=== PATIENT | female | born 1930 | race Caucasian/White ===

== ENCOUNTER 2016-08-22 07:24 | Emergency (ER) | payer MEDICARE | END 2016-08-22 10:46 | disposition critical access hospital (66) | LOC: ER 07:24 | DX: I13.0 Hypertensive heart and chronic kidney disease with heart failure and stage 1 through stage 4 chronic kidney disease, or unspecified chronic kidney disease (principal); N18.9 Chronic kidney disease, unspecified; I50.9 Heart failure, unspecified; F41.9 Anxiety disorder, unspecified; I48.91 Unspecified atrial fibrillation; Z79.899 Other long term (current) drug therapy; Z98.51 Tubal ligation status | CPT/HCPCS: 36415 ==

== ENCOUNTER 2016-08-22 07:24 | Inpatient (IN) | payer MEDICARE ==
[~2016-08-22] VITALS: Ht 158.8 cm; Wt 68.2 kg
== END 2016-08-25 10:10 | disposition swing bed (61) | DRG 291 ==
LOC: ER 07:24 → MED 10:47
PROVIDERS: ADMIT Internal Medicine
DX: I13.0 Hypertensive heart and chronic kidney disease with heart failure and stage 1 through stage 4 chronic kidney disease, or unspecified chronic kidney disease (principal); I50.33 Acute on chronic diastolic (congestive) heart failure; N17.9 Acute kidney failure, unspecified; N18.3 Chronic kidney disease, stage 3 (moderate); I48.0 Paroxysmal atrial fibrillation; K21.9 Gastro-esophageal reflux disease without esophagitis; J30.9 Allergic rhinitis, unspecified; E78.5 Hyperlipidemia, unspecified; Z79.01 Long term (current) use of anticoagulants; Z79.899 Other long term (current) drug therapy; Z95.2 Presence of prosthetic heart valve; Z82.49 Family history of ischemic heart disease and other diseases of the circulatory system; R09.02 Hypoxemia; R53.1 Weakness
CPT/HCPCS: 36415; 93306; 97162-GP; 97165

== ENCOUNTER 2016-08-25 10:30 | Inpatient (IN) | payer MEDICARE ==
[~2016-08-25] VITALS: Ht 158.8 cm; Wt 66.7 kg
== END 2016-09-01 16:00 | disposition home or self-care (01) | DRG 291 ==
LOC: SWI 10:30
PROVIDERS: ADMIT Internal Medicine
DX: I13.0 Hypertensive heart and chronic kidney disease with heart failure and stage 1 through stage 4 chronic kidney disease, or unspecified chronic kidney disease (principal); I50.33 Acute on chronic diastolic (congestive) heart failure; N18.3 Chronic kidney disease, stage 3 (moderate); I48.0 Paroxysmal atrial fibrillation; Z79.01 Long term (current) use of anticoagulants; K21.9 Gastro-esophageal reflux disease without esophagitis; J30.9 Allergic rhinitis, unspecified; E78.5 Hyperlipidemia, unspecified; Z95.2 Presence of prosthetic heart valve
CPT/HCPCS: 97164-GP; 97166

== ENCOUNTER 2016-09-12 09:50 | Emergency (ER) | payer MEDICARE | END 2016-09-12 13:05 | disposition short-term general hospital (02) | LOC: ER 09:50 | DX: R55 Syncope and collapse (principal); F41.9 Anxiety disorder, unspecified; I48.91 Unspecified atrial fibrillation; I11.0 Hypertensive heart disease with heart failure; I50.9 Heart failure, unspecified; Z98.51 Tubal ligation status; Z95.0 Presence of cardiac pacemaker; Z79.899 Other long term (current) drug therapy | CPT/HCPCS: 36415 ==